=== PATIENT | female | born 2005 | race Caucasian/White ===

== ENCOUNTER 2023-12-13 22:36 | Emergency (ER) | payer OTHER ==
--- NOTE | 2023-12-13 22:54 | ED ---
Allergic Reaction HPI - General Chief complaint: Allergic Reaction Stated complaint: Allergic reaction Time Seen by Provider: 12/13/23 22:49 Source: patient Mode of arrival: ambulatory Limitations: no limitations - History of Present Illness Initial Comments: 18-year-old female presented to the ED with complaints of allergic reaction. Was out sunbathing and around 4 or 5 started to experience some swelling of her lips. Reports that she used coconut oil before sunbathing. States that she does use this in the past with no problems. Denies any other new allergens. Denies new soaps or lotions. Is not on any daily medications. - Related Data Previous Rx's Medication Instructions Recorded EPINEPHrine (Auto Inject) [Epipen] 0.3 mg IM ONCE PRN #1 each 12/14/23 Allergies Allergy/AdvReac Type Severity Reaction Status Date / Time gluten AdvReac Rash/Hives Verified 12/13/23 22:49 Review of Systems ROS Statement: Those systems with pertinent positive or pertinent negative responses have been documented in the HPI. ROS Other: All systems not noted in ROS Statement are negative. Past Medical History Past Medical History: Asthma History of Any Multi-Drug Resistant Organisms: None Reported Past Surgical History: No Surgical Hx Reported Past Psychological History: No Psychological Hx Reported Smoking Status: Never smoker Past Alcohol Use History: None Reported Past Drug Use History: None Reported General Exam - General Exam Comments Initial Comments: Visual Physical Exam Vital signs reviewed General: Well-appearing, nontoxic, no acute distress. Head: Normocephalic, atraumatic Eyes: PERRLA, EOMI ENT: Airway patent Chest: Nonlabored breathing Neuro: Alert and oriented 3 Musculoskeletal: No gross abnormalities Limitations: no limitations General appearance: alert, in no apparent distress Eye exam: Present: normal appearance ENT exam: Present: normal oropharynx, other (Minimal swelling of upper and lower lips. No stridor, tolerating secretions.) Neck exam: Present: normal inspection Respiratory exam: Present: normal lung sounds bilaterally Cardiovascular Exam: Present: regular rate GI/Abdominal exam: Present: soft, normal bowel sounds. Absent: distended, tenderness, guarding, rebound, rigid Extremities exam: Present: normal inspection Back exam: Present: normal inspection Neurological exam: Present: alert, oriented X3 Skin exam: Present: warm, dry Course Vital Signs 12/13/23 12/13/23 12/14/23 22:46 23:33 01:00 Temperature 98.2 F Pulse Rate 101 H 85 Respiratory 18 16 16 Rate Blood Pressure 130/82 122/71 O2 Sat by Pulse 99 98 Oximetry Medical Decision Making - Medical Decision Making Quicknote portion performed. Signed Jose Bui PA-C Was pt. sent in by a medical professional or institution (, [facility], [facility], urgent care, hospital, or [facility]...) When possible be specific @ -No Did you speak to anyone other than the patient for history (EMS, parent, family, police, friend...)? What history was obtained from this source @ -No Did you review nursing and triage notes (agree or disagree)? Why? @ -I reviewed and agree with nursing and triage notes Were old charts reviewed (outside hosp., previous admission, EMS record, old EKG, old radiological studies, urgent care reports/EKG's, [facility] records)? Report findings @ -No old charts were reviewed Differential Diagnosis (chest pain, altered mental status, abdominal pain women, abdominal pain men, vaginal bleeding, weakness, fever, dyspnea, syncope, headache, dizziness, GI bleed, back pain, seizure, CVA, palpatations, mental health, musculoskeletal)? @ -Differential Musculoskeletal Anaphylaxsis, Muscular strain, contusion, ligament sprain, fracture, arthritis, septic arthritis, bursitis, cellulitis, muscle spasm, nerve compression, DVT, arterial occlusion, herpes zoster, electrolyte abnormality, tumor.... This is not meant to be in all inclusive list EKG interpreted by me (3pts min.). @ -None X-rays interpreted by me (1pt min.). @ -None done CT interpreted by me (1pt min.). @ -None done U/S interpreted by me (1pt. min.). @ -None done What testing was considered but not performed or refused? (CT, X-rays, U/S, labs)? Why? @ -None What meds were considered but not given or refused? Why? @ -None Did you discuss the management of the patient with other professionals (professionals i.e. , [facility], [facility], lab, RT, psych nurse, high school social science teacher, wire spooler, teacher, parking officer, immigration case manager)? Give summary @ -No Was smoking cessation discussed for >3mins.? @ -No Was critical care preformed (if so, how long)? @ -No Were there social determinants of health that impacted care today? How? (Homelessness, low income, unemployed, alcoholism, drug addiction, transportation, low edu. Level, literacy, decrease access to med. care, penitentiary, rehab)? @ -No Was there de-escalation of care discussed even if they declined (Discuss DNR or withdrawal of care, Hospice)? DNR status @ -No What co-morbidities impacted this encounter? (DM, HTN, Smoking, COPD, CAD, Cancer, CVA, ARF, Chemo, Hep., AIDS, mental health diagnosis, sleep apnea, morbid obesity)? @ -None Was patient admitted / discharged? Hospital course, mention meds given and route, prescriptions, significant lab abnormalities, going to OR and other pertinent info. @ -Discharge 18-year-old female presented to the ED with complaints of lip swelling starting shortly after using coconut oil and her whole body and sunbathing today. Unsure of any new allergens. On examination no significant oropharyngeal swelling. Minimal swelling to the lips. No stridor. Tolerating secretions. Lungs are clear with no evidence of respiratory distress. Patient provided Pepcid Benadryl and steroids. Discharged home in stable condition with prescription for an EpiPen. Advise close follow-up with her PCP. Discussed return precautions with patient who verbalized agreement. Undiagnosed new problem with uncertain prognosis? @ -No Drug Therapy requiring intensive monitoring for toxicity (Heparin, Nitro, Insulin, Cardizem)? @ -No Were any procedures done? @ -No Diagnosis/symptom? @ -Allergic reaction Acute, or Chronic, or Acute on Chronic? @ -Acute Uncomplicated (without systemic symptoms) or Complicated (systemic symptoms)? @ -Complicated Side effects of treatment? @ -No Exacerbation, Progression, or Severe Exacerbation? @ -No Poses a threat to life or bodily function? How? (Chest pain, [place], [place], pneumonia, PE, COPD, DKA, ARF, appy, cholecystitis, CVA, Diverticulitis, Homicidal, Suicidal, threat to staff... and all critical care pts) @ -Unlikely at this time Disposition Clinical Impression: Allergic reaction Disposition: HOME SELF-CARE Condition: Good Instructions (If sedation given, give patient instructions): Anaphylaxis (ED) Additional Instructions: Please return to the Emergency Department if symptoms worsen or any other c oncerns. Follow-up with your primary care provider. Prescriptions: EPINEPHrine (Auto Inject) [Epipen] 0.3 mg IM ONCE PRN #1 each PRN Reason: Anaphylaxis Is patient prescribed a controlled substance at d/c from ED?: No Referrals: None,Stated [REFERRING] - 1-2 days Time of Disposition: 01:49
[2023-12-13 23:15] VITALS: TEMP 98.2
[2023-12-14 00:07] VITALS: RESP 16
[2023-12-14] MEDS: methylPREDNISolone SOD SUCCI 125 MG/2 ML VIAL IV STA (00:38)
[2023-12-14] MEDS: diphenhydrAMINE 50 MG/ML 1 ML VIAL IVP STA (00:39)
[2023-12-14] MEDS: FAMOTIDINE 20 MG/2 ML VIAL IV STA (00:39)
[2023-12-14 02:14] VITALS: BP 120/76; PULSE 79
== END 2023-12-14 01:55 | disposition home or self-care (01) ==
LOC: EC 22:36
DX: T78.40XA Allergy, unspecified, initial encounter (principal); Z91.09 Other allergy status, other than to drugs and biological substances
CPT/HCPCS: 99283; 96374; 96375 ×2; J1200; J3490; J2919

== ENCOUNTER 2024-12-18 16:17 | Emergency (ER) | payer OTHER ==
--- NOTE | 2024-12-18 17:18 | ED ---
Female Urogenital HPI - General Source: patient, RN notes reviewed Mode of arrival: ambulatory Limitations: no limitations - History of Present Illness Last Menstrual Period: 11/05/24 <Lidya Easton - Last Filed: 12/18/24 17:17> <Jose Martin Mendoza - Last Filed: 12/20/24 17:37> - General Chief complaint: Vaginal Bleeding Stated complaint: Vaginal bleeding(6 weeks preg) Time Seen by Provider: 12/18/24 17:17 - History of Present Illness Initial comments: Quick [id number] female presenting for vaginal bleeding in x 12 days. Also reports pelvic cramping and low back pain. States she took a positive test 8 days ago. Last menstrual period was November 05, 2024. (Lidya Easton) 19-year-old female currently about 6 weeks presenting with chief complaint of vaginal bleeding. Patient reports that she has had bleeding and cramping for the last 12 days. She had a positive test about 8 days ago. She is a G2, P0. LMP November 05, 2024. She came in for evaluation today because it seems that her bleeding was getting worse. She is also having some low back discomfort. No dysuria urgency or frequency. No dizziness or weakness. No fever or chills. No other abnormal vaginal discharge. (Jose Martin Mendoza) - Related Data Previous Rx's Medication Instructions Recorded EPINEPHrine (Auto Inject) [Epipen] 0.3 mg IM ONCE PRN #1 each 12/14/23 Allergies Allergy/AdvReac Type Severity Reaction Status Date / Time gluten AdvReac Rash/Hives Verified 12/18/24 16:35 naproxen [From Aleve] AdvReac Rash/Hives Verified 12/18/24 16:35 Review of Systems ROS Other: All systems not noted in ROS Statement are negative. <Lidya Easton - Last Filed: 12/18/24 17:17> ROS Other: All systems not noted in ROS Statement are negative. <Jose Martin Mendoza - Last Filed: 12/20/24 17:37> ROS Statement: Those systems with pertinent positive or pertinent negative responses have been documented in the HPI. Past Medical History Past Medical History: Asthma History of Any Multi-Drug Resistant Organisms: None Reported Past Surgical History: No Surgical Hx Reported Past Psychological History: No Psychological Hx Reported Smoking Status: Current some day smoker, Vaper Past Alcohol Use History: None Reported Past Drug Use History: None Reported <Lidya Easton - Last Filed: 12/18/24 17:17> General Exam Limitations: no limitations <Lidya Easton - Last Filed: 12/18/24 17:17> Limitations: no limitations General appearance: alert, in no apparent distress Head exam: Present: atraumatic, normocephalic, normal inspection Eye exam: Present: normal appearance, EOMI Neck exam: Present: normal inspection. Absent: meningismus Respiratory exam: Present: normal lung sounds bilaterally. Absent: respiratory distress, wheezes, rales, rhonchi, stridor Cardiovascular Exam: Present: regular rate, normal rhythm, normal heart sounds. Absent: systolic murmur, diastolic murmur, rubs, gallop, clicks GI/Abdominal exam: Present: soft, tenderness. Absent: distended, guarding, rebound, rigid Neurological exam: Present: alert, oriented X3 Psychiatric exam: Present: normal affect, normal mood Skin exam: Present: warm, dry, normal color <Jose Martin Mendoza - Last Filed: 12/20/24 17:37> - General Exam Comments Initial Comments: Visual Physical Exam Vital signs reviewed General: Well-appearing, nontoxic, no acute distress. Head: Normocephalic, atraumatic Eyes: PERRLA, EOMI ENT: Airway patent Chest: Nonlabored breathing Skin: No visual rash, normal skin tone Neuro: Alert and oriented 3 Musculoskeletal: No gross abnormalities (Lidya Easton) Course Vital Signs 12/18/24 12/18/24 12/18/24 16:29 20:08 20:36 Temperature 97.5 F L 98.1 F Pulse Rate 94 78 71 Respiratory 22 16 16 Rate Blood Pressure 132/83 127/70 118/73 O2 Sat by Pulse 100 98 100 Oximetry Medical Decision Making <Lidya Easton - Last Filed: 12/18/24 17:17> - Lab Data Result diagrams: 12/18/24 19:04 12/18/24 19:04 <Jose Martin Mendoza - Last Filed: 12/20/24 17:37> - Medical Decision Making I completed the quick note portion of this chart signed Lidya Easton PA-C (Lidya Easton) Was pt. sent in by a medical professional or institution ([facility], AVIATION SAFETY TECHNICIAN, urgent care, hospital, or senior care...) When possible be specific @ -No Did you speak to anyone other than the patient for history (EMS, parent, family, police, friend...)? What history was obtained from this source @ -No Did you review nursing and triage notes (agree or disagree)? Why? @ -I reviewed and agree with nursing and triage notes Were old charts reviewed (outside hosp., previous admission, EMS record, old EKG, old radiological studies, urgent care reports/EKG's, senior care records)? Report findings @ -No old charts were reviewed Differential Diagnosis (chest pain, altered mental status, abdominal pain women, abdominal pain men, vaginal bleeding, weakness, fever, dyspnea, syncope, headache, dizziness, GI bleed, back pain, seizure, CVA, palpatations, mental health, musculoskeletal)? @ -MDM Differential Vaginal Bleeding: Spontaneous , threatened , molar , ectopic , bloody show, incompetent cervix, abruptioplacenta, placenta previa, uterine rupture, dysfunctional uterine bleeding, hemorrhage, uterine fibroids. ... This is not meant to be an all-inclusive list EKG interpreted by me (3pts min.). @ -As above X-rays interpreted by me (1pt min.). @ -None done CT interpreted by me (1pt min.). @ -None done U/S interpreted by me (1pt. min.). @ -Ultrasound shows no evidence of intrauterine gestational sac correlate with beta-hCG. If positive this could represent early ectopic or spontaneous . Follow-up pelvic ultrasound in 5 to 7 days and serial beta-hCG studies are recommended What testing was considered but not performed or refused? (CT, X-rays, U/S, labs)? Why? @ -None What meds were considered but not given or refused? Why? @ -None Did you discuss the management of the patient with other professionals (prof mahan i.e. [facility], AVIATION SAFETY TECHNICIAN, lab, RT, psych nurse, social media intern, offset pressman, teacher, international first officer, case finishing machine adjuster)? Give summary @ -No Was smoking cessation discussed for >3mins.? @ -No Was critical care preformed (if so, how long)? @ -No Were there social determinants of health that impacted care today? How? (Homelessness, low income, unemployed, alcoholism, drug addiction, transportation, low edu. Level, literacy, decrease access to med. care, longterm, rehab)? @ -No Was there de-escalation of care discussed even if they declined (Discuss DNR or withdrawal of care, Hospice)? DNR status @ -No What co-morbidities impacted this encounter? (DM, HTN, Smoking, COPD, CAD, Cancer, CVA, ARF, Chemo, Hep., AIDS, mental health diagnosis, sleep apnea, morbid obesity)? @ -None Was patient admitted / discharged? Hospital course, mention meds given and route, prescriptions, significant lab abnormalities, going to OR and other pertinent info. @ -19-year-old female currently about 6 weeks G2, P0 presenting with chief complaint of vaginal bleeding. History and physical examination are condu cted. Ultrasound shows no intrauterine gestational sac. Beta hCG is 264.7. Urine shows moderate blood which is to be expected given her complaint of vaginal bleeding. Stable hemoglobin at 13.6. Patient is hemodynamically stable. Patient is educated on today's findings. She is provided with an order for repeat beta-hCG in 48 hours. She follows with [facility] REVENUE SERVICE AGENT and is instructed to contact their office for follow-up. Discharged. Report back to ER with any new or worsening symptoms. Discussed return parameters and answered all questions. Patient conveyed verbal understanding and agreed to the plan. I discussed this case in detail with my attending Dr. Hardy Undiagnosed new problem with uncertain prognosis? @ -No Drug Therapy requiring intensive monitoring for toxicity (Heparin, Nitro, Insulin, Cardizem)? @ -No Were any procedures done? @ -No Diagnosis/symptom? @ -Threatened Acute, or Chronic, or Acute on Chronic? @ -Acute Uncomplicated (without systemic symptoms) or Complicated (systemic symptoms)? @ -Uncomplicated Side effects of treatment? @ -No Exacerbation, Progression, or Severe Exacerbation? @ -No Poses a threat to life or bodily function? How? (Chest pain, [place], [place], pneumonia, PE, COPD, DKA, ARF, appy, cholecystitis, CVA, Diverticulitis, Homicidal, Suicidal, threat to staff... and all critical care pts) @ -Unlikely (Jose Martin Mendoza) - Lab Data Lab Results 12/18/24 12/18/24 12/18/24 Range/Units 19:00 19:04 19:04 WBC 6.18 (4.50-10.00) 10*3/uL RBC 4.87 (4.10-5.20) 10*6/uL Hgb 13.6 (12.0-15.0) g/dL Hct 39.1 (37.2-46.3) % MCV 80.3 (80.0-97.0) fL MCH 27.9 (27.0-32.0) pg MCHC 34.8 (32.0-37.0) g/dL Plt Count 355 (140-440) 10*3/uL MPV 10.6 (9.5-12.2) fL Immature Gran % (Auto) 0.2 % Neutrophils % 52.5 % Lymphocytes % 34.1 % Monocytes % 5.7 % Eosinophils % 7.3 % Basophils % 0.2 % Immature Gran # 0.01 (0.00-0.04) 10*3/uL Neutrophils # 3.25 (1.80-7.70) 10*3/uL Lymphocytes # 2.11 (0.90-5.00) 10*3/uL Monocytes # 0.35 (0.20-1.00) 10*3/uL Eosinophils # 0.45 H (0.04-0.35) 10*3/uL Basophils # 0.01 (0.00-0.10) 10*3/uL Sodium 139 (137-145) mmol/L Potassium 4.6 (3.5-5.1) mmol/L Chloride 106 (98-107) mmol/L Carbon Dioxide 23 (22-30) mmol/L Anion Gap 10 mmol/L BUN 11 (7-17) mg/dL Creatinine 0.53 (0.52-1.04) mg/dL Est GFR (CKD-EPI)AfAm >90 (>60 ml/min/1.73 sqM) Est GFR (CKD-EPI)NonAf >90 (>60 ml/min/1.73 sqM) Glucose 95 (74-99) mg/dL Plasma Lactic Acid Shar (0.7-2.0) mmol/L Calcium 9.8 (8.4-10.2) mg/dL Total Bilirubin 0.9 (0.2-1.3) mg/dL AST 37 H (14-36) U/L ALT 16 (4-34) U/L Alkaline Phosphatase 39 (38-126) U/L Total Protein 8.0 (6.3-8.2) g/dL Albumin 4.9 (3.5-5.0) g/dL HCG, Quant 264.7 mIU/mL Urine Color Urine Appearance (Clear) Urine pH (5.0-8.0) Ur Specific [place] (1.001-1.035) Urine Protein (Negative) Urine Glucose (UA) (Negative) Urine Ketones (Negative) Urine Blood (Negative) Urine Nitrite (Negative) Urine Bilirubin (Negative) Urine Urobilinogen (<2.0) mg/dL Ur Leukocyte Esterase (Negative) Urine RBC (0-5) /hpf Urine WBC (0-5) /hpf Ur Squamous Epith Cells (0-4) /hpf Urine Mucus (None) /hpf Blood Type AB Positive Blood Type Recheck No Previous Record Bld Type Recheck Status ABR ONLY 12/18/24 12/18/24 Range/Units 19:04 19:04 WBC (4.50-10.00) 10*3/uL RBC (4.10-5.20) 10*6/uL Hgb (12.0-15.0) g/dL Hct (37.2-46.3) % MCV (80.0-97.0) fL MCH (27.0-32.0) pg MCHC (32.0-37.0) g/dL Plt Count (140-440) 10*3/uL MPV (9.5-12.2) fL Immature Gran % (Auto) % Neutrophils % % Lymphocytes % % Monocytes % % Eosinophils % % Basophils % % Immature Gran # (0.00-0.04) 10*3/uL Neutrophils # (1.80-7.70) 10*3/uL Lymphocytes # (0.90-5.00) 10*3/uL Monocytes # (0.20-1.00) 10*3/uL Eosinophils # (0.04-0.35) 10*3/uL Basophils # (0.00-0.10) 10*3/uL Sodium (137-145) mmol/L Potassium (3.5-5.1) mmol/L Chloride (98-107) mmol/L Carbon Dioxide (22-30) mmol/L Anion Gap mmol/L BUN (7-17) mg/dL Creatinine (0.52-1.04) mg/dL Est GFR (CKD-EPI)AfAm (>60 ml/min/1.73 sqM) Est GFR (CKD-EPI)NonAf (>60 ml/min/1.73 sqM) Glucose (74-99) mg/dL Plasma Lactic Acid Shar 0.9 (0.7-2.0) mmol/L Calcium (8.4-10.2) mg/dL Total Bilirubin (0.2-1.3) mg/dL AST (14-36) U/L ALT (4-34) U/L Alkaline Phosphatase (38-126) U/L Total Protein (6.3-8.2) g/dL Albumin (3.5-5.0) g/dL HCG, Quant mIU/mL Urine Color Colorless Urine Appearance Clear (Clear) Urine pH 5.5 (5.0-8.0) Ur Specific [place] 1.009 (1.001-1.035) Urine Protein Negative (Negative) Urine Glucose (UA) Negative (Negative) Urine Ketones Trace H (Negative) Urine Blood Moderate H (Negative) Urine Nitrite Negative (Negative) Urine Bilirubin Negative (Negative) Urine Urobilinogen <2.0 (<2.0) mg/dL Ur Leukocyte Esterase Negative (Negative) Urine RBC 45 H (0-5) /hpf Urine WBC 1 (0-5) /hpf Ur Squamous Epith Cells <1 (0-4) /hpf Urine Mucus Rare H (None) /hpf Blood Type Blood Type Recheck Bld Type Recheck Status Disposition <Lidya Easton - Last Filed: 12/18/24 17:17> Is patient prescribed a controlled substance at d/c from ED?: No <Jose Martin Mendoza - Last Filed: 12/20/24 17:37> Clinical Impression: Threatened Disposition: HOME SELF-CARE Condition: Good Instructions (If sedation given, give patient instructions): Threatened Miscarriage (ED) Additional Instructions: Follow-up with INTERNAL REVENUE SERVICE AGENT. Report back to ER with any new or worsening symptoms. Take Tylenol as needed for pain control. You have been given an order form to receive a repeat beta-hCG in 48 hours. Referrals: Jesse Singh MD [Primary Care Provider] - 1-2 days Shelly Subramanian MD [STAFF PHYSICIAN] - 1-2 days
--- NOTE | 2024-12-18 18:22 | US ---
EXAMINATION TYPE: Transabdominal DATE OF EXAM: 12/18/2024 6:12 PM COMPARISON: NONE CLINICAL INDICATION: Female, 19 years old with history of Vaginal bleeding in ; patient stat es clotting and cramping for the last 12 days TECHNIQUE: Transvaginal (TV) with grayscale and color Doppler imaging including first trimester pregn flakito. FINDINGS: EXAM MEASUREMENTS: GESTATIONAL AGE / DATING Physician Established: Not yet established Dates by LMP: (6 weeks/5 days) EDC: 08/08/2025 Dates by First Scan: No previous this is first scan Dates by Current Scan for: EDC: unable to date by todays study MATERNAL ANATOMY Uterus: 6.4 x 4.8 x 4.5cm. the endometrium measures 0.9cm Right Ovary: 2.8 x 1.2 x 1.8cm Left Ovary: obscured by overlying gas Post CDS / Adnexa: FF seen in the left adnexa Presence of free fluid: left adnexa Presence of corpus luteal cyst: not seen Presence of subchorionic bleed: not seen GESTATION / SURVEY CRL: NA Gestational Sac morphology: NA Yolk Sac (normal less than 6mm): NA Cardiac Activity/Heart Rate: NA bpm IUP: No IUP seen at this time Date of LMP: 11/01/2024 Beta HcG (if available): Not available at this time IMPRESSION: No evidence of intrauterine gestational sac, correlate with B-hCG. If positive, this could represent early , ectopic or spontaneous . Follow up pelvic ultrasound in 5-7 days a nd serial beta hCG studies are recommended. [facility], , 12/18/2024 6:20 PM
[2024-12-18 19:15] LABS: Basophils # (A) 0.01 10*3/uL (0.00-0.10); Basophils % (A) 0.2 %; Eosinophils # (A) 0.45 10*3/uL (0.04-0.35); Eosinophils % (A) 7.3 %; HCT 39.1 % (37.2-46.3); HGB 13.6 g/dL (12.0-15.0); Lymphocytes # (A) 2.11 10*3/uL (0.90-5.00); Lymphocytes % (A) 34.1 %; MCH 27.9 pg (27.0-32.0); MCHC 34.8 g/dL (32.0-37.0); MCV 80.3 fL (80.0-97.0); Mean Platelet Volume 10.6 fL (9.5-12.2); Monocytes # (A) 0.35 10*3/uL (0.20-1.00); Monocytes % (A) 5.7 %; Neutrophils # (A) 3.25 10*3/uL (1.80-7.70); Neutrophils % (A) 52.5 %; Platelet Count 355 10*3/uL (140-440); RBC 4.87 10*6/uL (4.10-5.20); RDW 13.2 % (11.5-14.5); WBC 6.18 10*3/uL (4.50-10.00)
[2024-12-18 19:31] LABS: ALT 16 U/L (4-34); AST 37 U/L (14-36); African American GFR (CKD) >90 (>60 ml/min/1.73 sqM); Albumin 4.9 g/dL (3.5-5.0); Alkaline Phosphatase 39 U/L (38-126); Anion Gap 10 mmol/L; Blood Urea Nitrogen 11 mg/dL (7-17); Calcium 9.8 mg/dL (8.4-10.2); Carbon Dioxide 23 mmol/L (22-30); Chloride 106 mmol/L (98-107); Glucose 95 mg/dL (74-99); Non-African American GFR(CKD) >90 (>60 ml/min/1.73 sqM); Sodium 139 mmol/L (137-145); Total Bilirubin 0.9 mg/dL (0.2-1.3)
[2024-12-18 19:34] LABS: Appearance,Urine Clear (Clear); Bilirubin,Urine Negative (Negative); Blood,Urine Moderate (Negative); Color,Urine Colorless; Glucose,Urine (UA) Negative (Negative); Ketones,Urine Trace (Negative); Leukocyte Esterase,Urine Negative (Negative); Mucus,Urine Rare /hpf; Nitrite,Urine Negative (Negative); PH, Urine 5.5 (5.0-8.0); Protein,Urine Negative (Negative); RBC,Urine 45 /hpf (0-5); Specific Gravity,Urine 1.009 (1.001-1.035); Squamous Epithelial Cell,Urine <1 /hpf (0-4); Urobilinogen,Urine <2.0 mg/dL (<2.0); WBC,Urine 1 /hpf (0-5)
[2024-12-18 19:47] LABS: HCG,Quantitative Serum 264.7 mIU/mL
[2024-12-18 19:56] LABS: Potassium 4.6 mmol/L (3.5-5.1)
[2024-12-18 20:09] VITALS: RESP 16
[2024-12-18 20:40] VITALS: BP 118/73; PULSE 71; TEMP 98.1
== END 2024-12-18 20:40 | disposition home or self-care (01) ==
LOC: EC 16:17
DX: O20.0 Threatened abortion (principal); O99.331 Smoking (tobacco) complicating pregnancy, first trimester; F17.290 Nicotine dependence, other tobacco product, uncomplicated; Z88.6 Allergy status to analgesic agent; Z91.018 Allergy to other foods; Z3A.01 Less than 8 weeks gestation of pregnancy
CPT/HCPCS: 36415; 76801; 76817; 80053; 81001; 83605; 84702; 85025; 86900; 86901; 99284